=== PATIENT | female | born 1945 | race Caucasian/White ===

== ENCOUNTER → 2023-07-23 12:44 | Outpatient (REF) | payer OTHER, SELFPAY | LOC: HWRAD 12:44 | PROVIDERS: ATTENDING PHYSICIAN Urology; FAMILY PHYSICIAN Family Medicine | DX: N20.0 Calculus of kidney (principal) | CPT/HCPCS: 76775 ==

== ENCOUNTER 2023-09-11 22:10 | Inpatient (IN) | payer OTHER, SELFPAY ==
[2023-09-11 18:18] VITALS: BP 186/85
[2023-09-11] MEDS: ZOFRAN ODT (ORALLY DISINTEGRATING) 4 MG PO (18:28)
[2023-09-11 18:37] LABS: % Basophils 0.5 % (0-2); % Eosinophils 0.7 % (0-6); % Immature Granulocytes 0.5 % (0-0.5); % Lymphocytes 12.3 % (20.5-51.1); Absolute Basophils 0.1 10^3/uL (0-0.2); Absolute Eosinophils 0.1 10^3/uL (0-0.7); Absolute Immature Granulocytes 0.1 10^3/uL (0-0.05); Absolute Lymphocytes 1.6 10^3/uL (1.2-3.4); Absolute Monocytes 1.2 10^3/uL (0.1-0.6); Hematocrit 37.3 % (37.0-47.0); Hemoglobin 12.6 g/dL (12.0-16.0); Mean Corp Hgb Conc. 33.8 g/dL (33.0-37.0); Mean Corpuscular Volume 91.6 fL (81.0-99.0); Mean Platelet Volume 9.8 fL (7.4-10.4); Nucleated Red Blood Cells % 0 %; Platelet Count 254 10^3/uL (130-400); Red Blood Cell Count 4.07 10^6/uL (4.20-5.40)
[2023-09-11 19:00] LABS: ALT (SGPT) 547 U/L (0-35); Albumin 4.4 g/dl (3.5-5.0); Alkaline Phosphatase 130 U/L (38-126); Blood Urea Nitrogen 27 mg/dl (7-17); Calcium 10.3 mg/dl (8.4-10.2); Carbon Dioxide 28 mmol/L (22-30); Chloride 103 mmol/L (98-107); Glucose 278 mg/dl (70-99); Potassium 4.3 mmol/L (3.5-5.1); Sodium 139 mmol/L (135-145); Total Bilirubin 1.5 mg/dl (0.2-1.3); eGFR 38.03
[2023-09-11 19:11] LABS: AST (SGOT) 1341 U/L (14-36)
[2023-09-11 19:48] LABS: Lipase > 4000 U/L (23-300)
[2023-09-11] MEDS: NSS 1000 IV ×2 (19:56→22:56)
[2023-09-11 20:00] VITALS: BP 142/67
--- NOTE | 2023-09-11 20:01 | ED.GENMED ---
History of Present Illness
General
Chief Complaint: Abdominal Pain
Source: patient and spouse
Exam Limitations: none
Time Seen by Provider: 09/11/23 19:16
Nursing documentation reviewed up to this point in time: agreed with
Travel History
Have you had any contact with someone who has COVID-19?: No
Do you have any symptoms of coronavirus? Fever > 100 degrees, chills, cough, shortness of breath, sore throat, loss of taste or smell, muscle aches, or headache?: No
History of Present Illness
History of Present Illness:
78 yo female w IDDM, hx pancreatitis, HLD, uterine cancer with hysterectomy, appendectomy, cholecystectomy presents stating she had a sudden onset at 3:30 PM of vomiting multiple times. says she has been sleeping a lot the past couple of
days. She does feel fatigued. She has not vomited since then but she did have 3 episodes of diarrheal stools today. She received Zofran in triage and states she is no longer nauseous. She does have upper mid to left abdominal pain
Has been taking Mounjaro for about 9 months, she stopped it 4 weeks ago because they were out of stock. She saw her PCP Dr. Gomez 2 weeks ago and her liver enzymes were elevated with a lipase of 250 she states. She went back 1 week ago and had
blood work repeated and they were improving.
Past History
Past History
ED Past Medical History: Cancer (Uterine), Hypercholesterolemia, NIDDM, Other (Pancreatitis) and Other (Kidney stone)
ED Past Surgical History: Appendectomy, Cholecystectomy, and Gynecological
Social History
Tobacco: Non-smoker
Alcohol: Occasional (Maybe twice in a year)
Drug: None
Personal:
Living: with family
Employment: Retired
Family History
Family History: Other (Noncontributory)
Review of Systems
Review of Systems
Allergies reviewed?: Yes
All Other Systems: ROS reviewed and negative except as documented in HPI and ROS
Constitutional: Reports fatigue; Denies fever
Respiratory: Denies trouble breathing
Cardiac: Denies chest pain
ABD/GI: Reports abdominal pain, nausea, vomiting and diarrhea; Denies bloody stools or black stools
: Denies dysuria, frequency, difficulty voiding or urgency
Musculoskeletal: Reports no symptoms
Skin: Reports no symptoms
Neurological: Reports no symptoms
Phy Exam
Physical Exam
Physical Exam:
GENERAL: No acute distress. A&Ox3.
CONSTITUTIONAL: Afebrile.
EYES: Clear, conjunctivae normal
ENMT: moist mucus membranes, Pharynx nl
RESPIRATORY: Regular respirations, nonlabored, lungs clear.
CARDIOVASCULAR: Regular rate and rhythm, no murmurs, no rubs.
GI: Soft, tender mid to left upper quadrant with guarding , normal BS
MUSCULOSKELETAL: Moves with ease. Well perfused.
SKIN: Warm, dry, pink
PSYCH: Normal mood and affect. Well kept, interactive and appropriate
NEUROLOGIC: Awake, alert and oriented. No focal neurological deficits
Course
Orders/Labs/Results
Orders:
Orders
09/11/23 18:26
CBC/With Diff [Complete Blood Count/With Diff] Urgent
CMP [Comprehensive Metabolic Panel] Urgent
Creatine Phosphokinase Urgent
Comment: ADD ON
Lipase Urgent
Ondansetron Orally Disint [Zofran Odt (Orally Disintegrating)] 4 mg .ROUTE .STK-MED ONE
09/11/23 18:27
Ondansetron Orally Disint [Zofran Odt (Orally Disintegrating)] 4 mg PO NOW STA
09/11/23 19:27
0.9% Sodium Chloride 1000 ml [Nss] 1,000 ml IV BOLUS
09/11/23 20:05
US Abdomen Complete/Upper Urgent
Comment:
Reason For Exam: recurrent pancreatitis Lipase >4000, IDDM
09/11/23 20:56
Admit/Transfer Patient As Directed
Co-Sign Provider:
Level of Care: Inpatient admission
Assign to:: Medical/Surgical
Physician / Group: kamille garcia
Diagnosis: acute pancreatitis
Reason for Hospitalization: acute pancreatitis
Expected length of stay greater than two midnights?: Yes
ELOS- Estimated Length of Stay in days: 3
I certify the patient meets the requirements for IP care: Yes
Code Status As Directed
Resuscitation Status: Full Code
09/11/23 21:30
Add On- LAB Urgent
Tests Added?: CPK
Abnormal Lab Results
09/11/23
18:26
WBC 13.0 H 10^3/uL
(4.8-10.8)
RBC 4.07 L 10^6/uL
(4.20-5.40)
Abs Immat Gran (auto) 0.1 H 10^3/uL
(0-0.05)
Absolute Neuts (auto) 10.0 H 10^3/uL
(1.4-6.5)
Absolute Monos (auto) 1.2 H 10^3/uL
(0.1-0.6)
Neutrophils % 77.0 H %
(42.2-75.2)
Lymphocytes % 12.3 L %
(20.5-51.1)
BUN 27 H mg/dl
(7-17)
Creatinine 1.4 H mg/dL
(0.6-1.0)
Glucose 278 H mg/dl
(70-99)
Calcium 10.3 H mg/dl
(8.4-10.2)
Total Bilirubin 1.5 H mg/dl
(0.2-1.3)
AST 1341 H* U/L
(14-36)
ALT 547 H* U/L
(0-35)
Alkaline Phosphatase 130 H U/L
(38-126)
Lipase > 4000 H* U/L
(23-300)
09/11/23 18:26
09/11/23 18:26
Vital Signs
Initial and Last Documented VS:
Initial Vital Signs
Temp Pulse Resp BP Pulse Ox
97.6 F 78 19 186/85 97
09/11/23 18:18 09/11/23 18:18 09/11/23 18:18 09/11/23 18:18 09/11/23 18:18
Last Documented Vital Signs
Temp Pulse Resp BP Pulse Ox
97.6 F 78 19 142/67 94
09/11/23 18:18 09/11/23 18:18 09/11/23 18:18 09/11/23 20:00 09/11/23 20:15
MDM/Problems Addressed
Differential Diagnosis Includes:
Pancreatitis, diverticulitis, colitis
MDM/Problems Addressed:
78 yo female w IDDM, hx pancreatitis, HLD, uterine cancer with hysterectomy, appendectomy, cholecystectomy presents stating she had a sudden onset at 3:30 PM of vomiting multiple times. says she has been sleeping a lot the past couple of
days. She does feel fatigued. She has not vomited since then but she did have 3 episodes of diarrheal stools today. She received Zofran in triage and states she is no longer nauseous. She does have upper mid to left abdominal pain
Has been taking Mounjaro for about 9 months, she stopped it 4 weeks ago because they were out of stock. She saw her PCP Dr. Gomez 2 weeks ago and her liver enzymes were elevated with a lipase of 250 she states. She went back 1 week ago and had
blood work repeated and they were improving.
7:30 PM
CBC: WBC 13.0 with elevated neutrophils
CMP: BUN/creatinine 27/1.4
Significantly elevated liver enzymes
Lipase greater than 4000
8:10 PM
Patient remained stable, comfortable, states she does not need pain medication
Ultrasound pending
Hospitalist notified of admission
*Critical Care Note
Total Time (30-74mins, 75-104mins- exclusive of procedures): Not Applicable
ED Attending Note
-
Portions of this chart may have been created with voice recognition software.� Occasional wrong word or��sound alike� substitutions may have occurred due to the inherent limitations of voice recognition software.
Discharge Plan
Departure
Patient Disposition: Admit
Date of Disposition: 09/11/23
Time of Disposition: 20:10
Admit to: Med/Surg
Presentation/result/management discussed w/ accepting MD/DO: Hospitalist
Condition: Serious
Discharge Problem:
Acute pancreatitis
Prescriptions:
No Action
insulin glargine U-300 conc [Toujeo SoloStar U-300 Insulin] 300 UNIT/ML insulin pen
45 units SC HS
Patient Comments:
INJECT 16 UNITS SUBCUTANEOUSLY ONCE DAILY
atorvastatin 80 mg tablet
80 mg PO DAILY
estradiol 0.01 % (0.1 mg/gram) cream
1 appful VAGINAL .3X WEEKLY
potassium citrate 5 mEq (540 mg) tablet extended release
15 meq PO BIDWMEAL
insulin aspart U-100 [Novolog FlexPen U-100 Insulin] 100 unit/mL (3 mL) insulin pen
20 unit SC AC
fenofibrate nanocrystallized 145 mg tablet
145 mg PO DAILY
olopatadine 0.6 % spray,non-aerosol
2 spray INTRANASAL BID
omega 1-hdt-rga-fish oil [Fish Oil] 1,000 mg (120 mg-180 mg) Capsule
1 cap PO MEALS
Referrals:
Tolu Gomez MD [Family Provider] -
Discharge Date and Time
Print Language: MACEDONIAN
--- NOTE | 2023-09-11 20:29 | HPS.HSE ---
Addendum entered and electronically signed by Clayton Polo DO 09/11/23 22:21:
Patient seen and examined independently. Agree with findings and plan as set forth by KIMBERLY Haley.
Patient is an 78y F with PMH significant for pancreatitis, DM-II and kidney stones who presents to ED complaining of N/V/D and abdominal discomfort. Patient states that she was feeling well until about 3 PM today when she developed sudden onset
of crampy abdominal pain, nausea with multiple episodes of non-bloody / bilious emesis and diarrhea. Patient states that she had eaten a roast beef sandwich and some animal crackers just prior to development of these symptoms.
She denies any new medications. Her most recent me change was cessation of Mounjaro about one month ago (which she stopped due to rising amylase / lipase). She states that her labs did improve after stopping this medication.
No other new meds.
Patient has prior history of complicated pancreatitis s/p ERCP done at [facility].
Ass:
N/V/D
Acute Pancreatitis
Abnormal LFTs
CKD III
DM-II
Nephrolithiasis
Plan:
Admit for further evaluation and treatment.
Patient feels markedly improved in the ED after only Zofran.
? gastroenteritis based on description / acuity of symptoms; however, markedly abnormal LFTs and pancreatic enzymes.
NPO, IVFs, antiemetics and pain control as needed.
GI evaluation for additional recommendations.
Original Note:
Family Physician
-
Family Physician: Tolu Gomez
Chief Complaint
-
Abdominal pain, nausea, vomit, diarrhea
History of Present Illness
78-year-old female who states she had roast beef lunch meat with cheese lettuce and tomato on a sandwich followed by half a bag of animal crackers then shortly after at 3 PM developed acute nausea followed by vomiting x 1 hour then liquid diarrhea.
She complains of mid upper epigastric pain with distention. She denies fever, chills, headache, chest pain, palpitations, shortness of breath, cough, urinary symptoms. She has past medical history of pancreatitis in 2000 thought to related to
hyperglycemia with blood sugars over 500 at that time. She prior cholecystectomy 24 years ago.
She past medical history transaminitis 09/26/2021, pancreatitis, HLD, DM2, bifascicular heart block, sepsis with Klebsiella pneumonia bacteremia 09/26/2021, non-[place] troponin elevation 09/26/2021, nephrolithiasis
Medical History
Past Medical History
Past Medical History: Reports Other
Additional Past Medical History:
transaminitis 09/26/2021
pancreatitis 2000 thought to be related to hyperglycemia with blood sugars over 500-treated at [facility] had ERCP with no stones
HLD
DM2
bifascicular heart block
sepsis with Klebsiella pneumonia bacteremia 09/26/2021
non-[place] troponin elevation 09/26/2021
nephrolithiasis uric acid stones
Past Surgical History: Reports Other
Additional Past Surgical History:
Appendectomy
Cholecystectomy removal 24 years ago
Social History
Tobacco: Non-smoker
Alcohol: None
Drug: None
Personal:
Living: With Family
Employment: Retired
Family History
Family History: Other (Father of abdominal aortic rupture, mother breast cancer to lung cancer 61 years old)
Allergies / Home Medications
Allergies reflects when Allergies were last updated in [employer].
Home Medications with original date entered in [employer]
Allergy/Medication List:
Allergies
Allergy/AdvReac Type Severity Reaction Status Date / Time
oxycodone [From OxyContin] Allergy Nausea / Verified 09/11/21 12:59
Vomiting
Penicillins Allergy Rash Verified 09/11/21 12:59
Home Medications
insulin glargine U-300 conc 300 unit/mL (1.5 mL) subcutaneous pen (Toujeo SoloStar U-300 Insulin) 45 units SC HS Diabetes 03/27/17
atorvastatin 80 mg tablet 80 mg PO DAILY 09/11/23
estradiol 0.01% (0.1 mg/gram) vaginal cream 1 appful vaginal .3X WEEKLY 09/11/23
fenofibrate nanocrystallized 145 mg tablet 145 mg PO DAILY 09/11/23
insulin aspart U-100 100 unit/mL (3 mL) subcutaneous pen (Novolog FlexPen U-100 Insulin aspart) 20 unit SC AC 09/11/23
olopatadine 0.6 % nasal spray 2 spray intranasal BID 09/11/23
omega 3-ick-nmo-fish oil 1,000 mg (120 mg-180 mg) capsule (Fish Oil) 1 cap PO MEALS 09/11/23
potassium citrate 5 mEq (540 mg) tablet,extended release 15 meq PO BIDWMEAL 09/11/23
Review of Systems
-
History Source: Patient
A 12 point ROS was completed and negative except as noted: Yes
Constitutional: Denies Fever or Chills
EENT: Denies Sore Throat or Runny Nose
Respiratory: Denies Cough or Trouble Breathing
Cardiac: Denies Chest Pain, Diaphoresis or Palpitations
Abdomen/GI: Reports Abdominal Pain (Mid upper abdomen), Nausea, Vomiting and Diarrhea; Denies Constipated, Bloody Stools or Black Stools
: Denies Dysuria, Frequency, Flank Pain, Incontinence or Difficulty Voiding
Musculoskeletal: Denies Joint Pain or Edema
Skin: Denies Itching or Rash
Neurological: Denies Dizzy, Headache or Weakness
Endocrine: Reports No Symptoms
Hematologic/Lymphatic: Reports No Symptoms
Psych: Reports Calm
Physical Exam
Vital Signs
Vital Signs
Temp Pulse Resp BP Pulse Ox
97.6 F 78 19 142/67 94
09/11/23 18:18 09/11/23 18:18 09/11/23 18:18 09/11/23 20:00 09/11/23 20:15
Physical Exam
General: Comfortable and Conversant; No Fever or Chills
HEENT: NormoCephalic, Anicteric, Moist mucous membranes, PERRLA, [place] Conjunctivae and No Ptosis
Respiratory: Clear; No Wheezes, Rales or Rhonchi
Cardiac: S1/S2 and Regular Rhythm; No Murmur, Rub, Gallop or Peripheral Edema
Breast: Deferred by me
GI: Soft, Normal Bowel Sounds, Tender (Midepigastric/upper abdomen), Distended and No Hepatosplenomegaly
Genito-urinary: Deferred by me
Musculoskeletal: No Clubbing, No Cyanosis and No Edema
Skin: Warm and Dry; No Rash
Neuro: AO x 3, No Motor Deficits, Nonfocal/grossly intact, Cranial Nerves Intact and No Sensory Deficits; No Slurred Speech, Facial Droop or Tremors
Psych: Calm
Laboratory Results
-
09/11/23 18:26
09/11/23 18:26
Laboratory Results
Total Bilirubin 1.5 mg/dl (0.2-1.3) H 09/11/23 18:26
AST 1341 U/L (14-36) H* 09/11/23 18:26
ALT 547 U/L (0-35) H* 09/11/23 18:26
Alkaline Phosphatase 130 U/L (38-126) H 09/11/23 18:26
Lipase > 4000 U/L (23-300) H* 09/11/23 18:26
Impression/Plan
-
Impression/plan:
Admit to [facility]
#Acute pancreatitis/transaminitis/hyperbilirubinemia unclear etiology
#Past medical history transaminitis 09/26/2021
#Hx pancreatitis 2000 thought to be related to hyperglycemia with blood sugar over 500
#Hx cholecystectomy 24 years ago
WBC 13, T. bili 1.5
AST 1341, ALT 574, lipase>4000
-N.p.o.
-IV PPI
-IV NSS 1 L, Nss 200 cc/hr
-Consult GI
- hepatitis panel
-Ultrasound abdomen :Prior cholecystectomy. Stable
Hepatic fatty infiltration. Stable
Simple right renal cyst. Stable
Nonobstructing left renal stones. New
Nonvisualization of the pancreatic tail.
#HLD
-Hold atorvastatin 80 mg daily, fenofibrate 145 mg daily, fish oil
#CKD 3B
Creat 1.4 was 1.2 in 2021
-Will BMP
#DM2
BS 278
-Accu-Cheks with SSI, check HgbA1c
-Hold Toujeo 45 units SQ at bedtime, NovoLog 20 units with meals
#Bifascicular heart block hx
#Obesity due to excess calorie consumption
-Weight loss recommended, low-fat diet
Other PMH:
Sepsis with Klebsiella pneumonia bacteremia 09/26/2021
non-[place] troponin elevation 09/26/2021
Renal calculi uric acid type-Hold potassium citrate twice daily with meals
DVT prophylaxis
Subcu Lovenox
Full code
[2023-09-11 22:05] LABS: Creatine Phosphokinase 198 U/L (30-135)
[2023-09-11 22:40] VITALS: BMI 32.9
[2023-09-11 23:08] VITALS: BP 155/86
[2023-09-12] MEDS: NSS 1000 IV ×4 (05:03→21:43)
[2023-09-12 05:39] LABS: % Basophils 0.4 % (0-2); % Eosinophils 0.6 % (0-6); % Immature Granulocytes 0.5 % (0-0.5); % Lymphocytes 13.9 % (20.5-51.1); % Monocytes 10.2 % (1.7-9.3); % Neutrophils 74.4 % (42.2-75.2); Absolute Eosinophils 0.1 10^3/uL (0-0.7); Absolute Immature Granulocytes 0.1 10^3/uL (0-0.05); Absolute Lymphocytes 1.4 10^3/uL (1.2-3.4); Absolute Neutrophils 7.3 10^3/uL (1.4-6.5); Mean Corp Hgb Conc. 34.4 g/dL (33.0-37.0); Mean Corpuscular Hgb 30.7 pg (27.0-31.0); Mean Corpuscular Volume 89.4 fL (81.0-99.0); Mean Platelet Volume 9.9 fL (7.4-10.4); Nucleated Red Blood Cells % 0 %; Platelet Count 235 10^3/uL (130-400); Red Blood Cell Count 3.58 10^6/uL (4.20-5.40); Red Cell Dist. Width 14.3 % (11.5-14.5); White Blood Cell Count 9.9 10^3/uL (4.8-10.8)
[2023-09-12 06:15] LABS: ALT (SGPT) 519 U/L (0-35); Albumin 3.5 g/dl (3.5-5.0); Alkaline Phosphatase 115 U/L (38-126); Blood Urea Nitrogen 20 mg/dl (7-17); Carbon Dioxide 22 mmol/L (22-30); Chloride 110 mmol/L (98-107); Estimated Creatinine Clearance 34 ml/min; Glucose 223 mg/dl (70-99); Potassium 4.2 mmol/L (3.5-5.1); Sodium 140 mmol/L (135-145); Total Bilirubin 1.1 mg/dl (0.2-1.3); Total Protein 6.5 g/dl (6.3-8.2); eGFR 41.57
[2023-09-12 06:25] LABS: AST (SGOT) 862 U/L (14-36)
[2023-09-12] MEDS: PROTONIX IV 40 MG IV (08:34)
[2023-09-12] MEDS: NSS (PRESERVATIVE FREE) 10 ML IV (08:34)
[2023-09-12 08:39] VITALS: BMI 33.7
[2023-09-12 08:40] VITALS: BP 140/62
--- NOTE | 2023-09-12 09:49 | CON.GI ---
Addendum entered and electronically signed by Joellen Sutherland MD 09/12/23 15:21:
I saw and examined the patient.
The MOBILE APPLICATION TESTER or PA's note was reviewed and I agree with the note.
Comment:
This patient is an 78-year-old woman with a history of diabetes on insulin who recently was placed on Mounjaro. She did stop Mounjaro about a month ago and subsequently had an increase in her amylase and lipase and some abdominal discomfort. She
also had some nausea, vomiting and diarrhea. She does have a history of pancreatitis due to hypertriglyceridemia.In the ER she was found to have transaminase elevation as well as a lipase greater than 4000. Her abdominal pain is subsequently
resolved.
abd: soft, nontender
impression
abnl lfts
IVFs
trend lfts, lipase
MRI/MRCP
NPO for now
Original Note:
Consultation
-
Date/Time Consultation Requested: 09/11/232231
Date/Time Consultation Performed: 09/12/23 0900
Requesting Provider: KIMBERLY Rogers
Performing Provider: Dr. Sutherland/KIMBERLY Tee
Reason for Consultation: pancreatitis
Medical History
Chief Complaint / HPI
Chief Complaint: abd pain
History of Present Illness:
78-year-old female with past medical history of diabetes, on insulin and recently on Mounjaro started 9 months ago for hemoglobin A1c that was uncontrolled, now improved however unable to get meds for the past 4 weeks, CKD, osteoarthritis, uterine
cancer, hyperlipidemia with elevated triglycerides, history of pancreatitis in 2000 felt to be due secondary to hypertriglyceridemia with prolonged hospitalization requiring TPN. Who presents to the emergency room with acute onset of abdominal pain
yesterday. Asked to evaluate for pancreatitis. The patient states that she gets her amylase and lipase checked frequently for her history of pancreatitis in the past with her PCP. She states that a couple weeks ago her amylase and lipase started
increasing. She has been on Mounjaro for approximately 9 months. Approximately 4 weeks ago because of supply chain issues she has been not able to take this. She has had no other changes in medications recently. I was able to review her outside
labs and she did have a mild increase in amylase and lipase. With normal liver function test. On 08/22/2023 she had amylase of 147 with a lipase of 235 and triglycerides of 378 with normal LFTs. Repeated on 08/28/2023 with an amylase of 102 and a
lipase of 144. Of note the lipase was only 1 that was slightly out of range. Normal LFTs at that time. The patient states that she did not had have any discomfort till yesterday where she had acute onset of abdominal discomfort which she states
is periumbilical in nature. The pain was sharp, constant, associated with nausea and vomiting of bilious fluid. She had newspaper correspondent colored stools. She did not notice the color of her urine. She denies any fevers, chills, hematochezia, dysphagia or
odynophasia. No early satiety or unintentional weight loss. She presents to the emergency room with a leukocytosis of 13.0 which is now improved to 9.9, hemoglobin of 12.6 which is now down to 11.0 with IV fluids at 200 cc an hour. Sodium 140,
potassium 4.2, chloride 110, CO2 22, BUN 20, creatinine 1.3, glucose 223, calcium 9.0 down from 10.3, total bilirubin 1.1 down from 1.5 no fractionation performed. AST 862 down from 1341, ALT 519 down from 547, alk phos 115 down from 130, CK 198,
lipase greater than 4000. Hepatitis panel pending. Ultrasound the abdomen performed that showed prior cholecystectomy. CBD 10 mm. Pancreatic tail poorly visualized. Simple right renal cyst. Nonobstructing left renal stones.
Past Medical History
Past Medical History: Cancer (Uterine cancer), Hypercholesterolemia (Elevated triglycerides, hyperlipidemia), NIDDM and Other (CKD, pancreatitis, kidney stone)
Past Surgical History: , Gynecological and Other (Left trigger finger, , appendectomy, cholecystectomy, hysterectomy, EUS/ERCP)
Social History
Tobacco: Non-Smoker
Alcohol: None
Drug: None
Personal:
Living: With Family
Family History
Family History: Other (No family history of gastrointestinal malignancy or IBD)
Allergies / Home Medications
Allergy/AdvReac Type Severity Reaction Status Date / Time
oxycodone [From OxyContin] Allergy Nausea / Verified 09/11/21 12:59
Vomiting
Penicillins Allergy Rash Verified 09/11/21 12:59
�Medication �Instructions �Recorded
insulin glargine U-300 conc 300 45 units SC HS Diabetes 03/27/17
unit/mL (1.5 mL) subcutaneous pen
(Toujeo SoloStar U-300 Insulin)
atorvastatin 80 mg tablet 80 mg PO DAILY 09/11/23
estradiol 0.01% (0.1 mg/gram) 1 appful vaginal .3X WEEKLY 09/11/23
vaginal cream
fenofibrate nanocrystallized 145 145 mg PO DAILY 09/11/23
mg tablet
insulin aspart U-100 100 unit/mL 20 unit SC AC 09/11/23
(3 mL) subcutaneous pen (Novolog
FlexPen U-100 Insulin aspart)
olopatadine 0.6 % nasal spray 2 spray intranasal BID 09/11/23
omega [id number]-fish oil 1,000 mg 1 cap PO MEALS 09/11/23
(120 mg-180 mg) capsule (Fish Oil)
potassium citrate 5 mEq (540 mg) 15 meq PO BIDWMEAL 09/11/23
tablet,extended release
Review of Systems
-
All other systems: A 12 pt ROS was Negative except as stated above in HPI
Vital Signs
Temp Pulse Resp BP Pulse Ox
98.1 F 61 18 140/62 98
09/12/23 08:40 09/12/23 08:40 09/12/23 08:40 09/12/23 08:40 09/12/23 08:40
Physical Exam
Exam
General: No Apparent Distress
HEENT: Normocephalic and Anicteric
Respiratory: Clear
Cardiac: Regular Rhythm
GI: Soft, Non Distended, Normal Bowel Sounds and Tender (Mild periumbilical tenderness)
Skin: Warm
Neuro: AO x 3
Psych: Calm
Results
WBC 9.9 10^3/uL (4.8-10.8) 09/12/23 04:59
Hgb 11.0 g/dL (12.0-16.0) L 09/12/23 04:59
Hct 32.0 % (37.0-47.0) L 09/12/23 04:59
MCV 89.4 fL (81.0-99.0) 09/12/23 04:59
Plt Count 235 10^3/uL (130-400) 09/12/23 04:59
Absolute Neuts (auto) 7.3 10^3/uL (1.4-6.5) H 09/12/23 04:59
Sodium 140 mmol/L (135-145) 09/12/23 04:59
Potassium 4.2 mmol/L (3.5-5.1) 09/12/23 04:59
Chloride 110 mmol/L (98-107) H 09/12/23 04:59
Carbon Dioxide 22 mmol/L (22-30) 09/12/23 04:59
BUN 20 mg/dl (7-17) H 09/12/23 04:59
Creatinine 1.3 mg/dL (0.6-1.0) H 09/12/23 04:59
Calcium 9.0 mg/dl (8.4-10.2) 09/12/23 04:59
Total Bilirubin 1.1 mg/dl (0.2-1.3) 09/12/23 04:59
AST 862 U/L (14-36) H* 09/12/23 04:59
ALT 519 U/L (0-35) H* 09/12/23 04:59
Alkaline Phosphatase 115 U/L (38-126) 09/12/23 04:59
Lipase > 4000 U/L (23-300) H* 09/11/23 18:26
Diagnostic Image Results:
US Abd 09/11/23:
IMPRESSION: Prior cholecystectomy. Stable
Hepatic fatty infiltration. Stable
Simple right renal cyst. Stable
Nonobstructing left renal stones. New
Nonvisualization of the pancreatic tail.
Electronically signed by Renee Hart DO , 09/11/2023 9:25 PM
Prior GI Procedures:
EGD: Never
Colonoscopy: 10/11/2017 ([facility]) - The entire examined colon is normal.
- The examined portion of the ileum was normal
ERCP Dec 2000 ([facility]) -> records unavailable
Assessment / Plan
-
78-year-old female with past medical history of diabetes, on insulin and recently on Mounjaro started 9 months ago for hemoglobin A1c that was uncontrolled, now improved however unable to get meds for the past 4 weeks, CKD, osteoarthritis, uterine
cancer, hyperlipidemia with elevated triglycerides, history of pancreatitis in 2000 felt to be due secondary to hypertriglyceridemia with prolonged hospitalization requiring TPN. Who presents to the emergency room with acute onset of abdominal pain
yesterday. Asked to evaluate for pancreatitis. The patient states that she gets her amylase and lipase checked frequently for her history of pancreatitis in the past with her PCP. She states that a couple weeks ago her amylase and lipase started
increasing. She has been on Mounjaro for approximately 9 months. Approximately 4 weeks ago because of supply chain issues she has been not able to take this. She has had no other changes in medications recently. I was able to review her outside
labs and she did have a mild increase in amylase and lipase. With normal liver function test. On 08/22/2023 she had amylase of 147 with a lipase of 235 and triglycerides of 378 with normal LFTs. Repeated on 08/28/2023 with an amylase of 102 and a
lipase of 144. Of note the lipase was only 1 that was slightly out of range. Normal LFTs at that time. The patient states that she did not had have any discomfort till yesterday where she had acute onset of abdominal discomfort which she states
is periumbilical in nature.She presented with a leukocytosis of 13.0 which is now improved to 9.9, hemoglobin of 12.6 which is now down to 11.0 with IV fluids at 200 cc an hour. Sodium 140, potassium 4.2, chloride 110, CO2 22, BUN 20, creatinine
1.3, glucose 223, calcium 9.0 down from 10.3, total bilirubin 1.1 down from 1.5 no fractionation performed. AST 862 down from 1341, ALT 519 down from 547, alk phos 115 down from 130, CK 198, lipase greater than 4000. Hepatitis panel pending.
Ultrasound the abdomen performed that showed prior cholecystectomy. CBD 10 mm. Pancreatic tail poorly visualized. Simple right renal cyst. Nonobstructing left renal stones.
Impression:
Pancreatitis
Elevated LFTs
DM
History hypertriglyceridemia
Hx Mounjaro use (off x 4 weeks)
Plan:
-Continue IVF, may be able to decrease later today
-Incentive spirometer
-Check direct bilirubin, triglycerides now
-CBC, BMP, LFTs, CRP and lipase in a.m.
-MRI/MRCP to evaluate pancreas and bile ducts
-Further recommendations to be forthcoming
Data Reviewed
-
Ultrasound: Report Reviewed by me
Old Records: Reviewed
-
-
Thank you for consultation and allowing me to participate in the patient's care. Please call the [facility] GI physician during the after hours with any questions or concerns.
[2023-09-12 10:19] VITALS: BP 144/60; PULSE 62; O2SAT 96
[2023-09-12 10:25] VITALS: BP 144/61; BP 81/70; O2SAT 95
[2023-09-12 10:31] LABS: Triglycerides 199 mg/dl (10-149)
[2023-09-12 10:46] LABS: Direct Bilirubin 0.8 mg/dl (0.0-0.4)
--- NOTE | 2023-09-12 14:26 | W.PN.HOSP.TC ---
Today's Communication/Plan
-
see plan below
Assessment / Plan
Assessment / Plan
Assessment:
N/V/D
Acute Pancreatitis
- MRI/MRCP: Status post cholecystectomy with no evidence for biliary ductal dilation. There is no evidence for bile duct calculus. Mild edema with in and adjacent to the neck and head of the pancreas, compatible with pancreatitis. There is no
evidence for macroscopic necrosis. There is no evidence of a focal collection to suggest abscess or developing pseudocyst.
- TG level 199
- continue IVF
- trend Lipase
- GI following
Abnormal LFTs
- trend LFTs
- check hepatitis panel
- holding statin
History hypertriglyceridemia
- hold statin/fibrates
- TG level 199
CKD IIIb
IDDM
- hold Toujeo and NovoLog while NPO
- continue SSI
- A1c: pending
- off Mounjaro x 4 weeks
hx of Nephrolithiasis
DVT ppx: Lovenox
Code: Full
Anticipated Discharge: > 48 hours
Subjective/Interval History
-
Date of Service: September 12, 2023
pain improving
Objective Data
-
Labs:
Laboratory Results
09/12/23
04:59
WBC 9.9
Hgb 11.0 L
Hct 32.0 L
Plt Count 235
Sodium 140
Potassium 4.2
Chloride 110 H
Carbon Dioxide 22
BUN 20 H
Creatinine 1.3 H
Glucose 223 H
Calcium 9.0
Total Bilirubin 1.1
AST 862 H*
ALT 519 H*
Alkaline Phosphatase 115
Vital Signs:
Vital Signs
Temp Pulse Resp BP Pulse Ox
98.1 F 61 18 140/62 98
09/12/23 08:40 09/12/23 08:40 09/12/23 08:40 09/12/23 08:40 09/12/23 08:40
I&O
09/11/23 09/12/23 09/13/23
06:59 06:59 06:59
Intake Total 1999
Balance 1999
Physical Exam
-
General: No Apparent Distress
HEENT: Normocephalic and Atraumatic
Respiratory: Negative Wheezes or Rales
Cardiac: Regular Rhythm and S1/S2
GI: Soft
Neuro: AO x 3
Psych: Calm
Data Reviewed
-
Total Time Spent with Patient (in minutes): 45
Labs: Labs Reviewed by me
[2023-09-12 16:01] VITALS: BP 130/58
[2023-09-12 18:14] LABS: Glucose - Point of Care 177 mg/dl (70-99)
[2023-09-12] MEDS: LOVENOX 40 MG SC (18:17)
[2023-09-12] MEDS: NOVOLOG FLEXPEN-LOW RESISTANCE 1 UNITS SC (18:19)
[2023-09-12 19:45] VITALS: BP 152/55; BMI 32.9
[2023-09-12] MEDS: NSS IV (19:54)
--- NOTE | 2023-09-12 21:04 | PTCARENOTE ---
Patient received from ED. Patient denies any pain. IVF infusing at 200ml/hr. Patient remains NPO at this time. Denies any N/V. POC reviewed with patient and all questions answered. Care ongoing.
[2023-09-12 23:10] VITALS: BP 124/61
[2023-09-13 00:18] LABS: Glucose - Point of Care 118 mg/dl (70-99)
[2023-09-13] MEDS: NSS 1000 IV ×5 (02:50→23:34)
[2023-09-13 05:57] LABS: Glucose - Point of Care 112 mg/dl (70-99)
[2023-09-13 07:00] VITALS: BP 142/67
[2023-09-13 08:33] LABS: Hematocrit 31.4 % (37.0-47.0); Hemoglobin 10.3 g/dL (12.0-16.0); Mean Corp Hgb Conc. 32.8 g/dL (33.0-37.0); Mean Corpuscular Volume 94.6 fL (81.0-99.0); Mean Platelet Volume 10.4 fL (7.4-10.4); Platelet Count 191 10^3/uL (130-400); Red Blood Cell Count 3.32 10^6/uL (4.20-5.40); Red Cell Dist. Width 14.6 % (11.5-14.5); White Blood Cell Count 7.4 10^3/uL (4.8-10.8)
[2023-09-13 09:03] LABS: ALT (SGPT) 308 U/L (0-35); AST (SGOT) 280 U/L (14-36); Albumin 3.2 g/dl (3.5-5.0); Alkaline Phosphatase 119 U/L (38-126); Blood Urea Nitrogen 14 mg/dl (7-17); Calcium 8.3 mg/dl (8.4-10.2); Carbon Dioxide 20 mmol/L (22-30); Chloride 113 mmol/L (98-107); Direct Bilirubin 0.5 mg/dl (0.0-0.4); Estimated Creatinine Clearance 40 ml/min; Glucose 112 mg/dl (70-99); Potassium 4.4 mmol/L (3.5-5.1); Sodium 141 mmol/L (135-145); Total Bilirubin 0.8 mg/dl (0.2-1.3); Total Protein 6.1 g/dl (6.3-8.2)
[2023-09-13] MEDS: NSS (PRESERVATIVE FREE) 10 ML IV (09:24)
[2023-09-13] MEDS: PROTONIX IV 40 MG IV (09:25)
[2023-09-13 09:39] LABS: Lipase > 4000.0 U/L (23-300)
--- NOTE | 2023-09-13 10:12 | W.PN.HOSP.TC ---
Today's Communication/Plan
-
cautiously trial clears
continue IVF
Assessment / Plan
Assessment / Plan
Assessment:
N/V/D
Acute Pancreatitis
- MRI/MRCP: Status post cholecystectomy with no evidence for biliary ductal dilation. There is no evidence for bile duct calculus. Mild edema with in and adjacent to the neck and head of the pancreas, compatible with pancreatitis. There is no
evidence for macroscopic necrosis. There is no evidence of a focal collection to suggest abscess or developing pseudocyst.
- TG level 199
- continue IVF; decrease rate to 150/hr
- trend Lipase; remains elevated but no pain or n/v
- cautiously trial clears
- GI following
Abnormal LFTs
- trend LFTs which are improving
- hepatitis panel pending
- holding statin
History hypertriglyceridemia
- hold statin/fibrates
- TG level 199
CKD III b
IDDM
- hold Toujeo and NovoLog while NPO
- continue SSI
- A1c: pending
- off Mounjaro x 4 weeks
hx of Nephrolithiasis
DVT ppx: Lovenox
Code: Full
Anticipated Discharge: > 48 hours
Subjective/Interval History
-
Date of Service: September 13, 2023
denies any new complaints at present
no vomiting or pain
LFTS improving, Lipase remains elevated
Objective Data
-
Labs:
Laboratory Results
09/13/23
06:54
WBC 7.4
Hgb 10.3 L
Hct 31.4 L
Plt Count 191
Sodium 141
Potassium 4.4
Chloride 113 H
Carbon Dioxide 20 L
BUN 14
Creatinine 1.1 H
Glucose 112 H
Calcium 8.3 L
Total Bilirubin 0.8
AST 280 H
ALT 308 H
Alkaline Phosphatase 119
Vital Signs:
Vital Signs
Temp Pulse Resp BP Pulse Ox
98.0 F 58 17 142/67 96
09/13/23 07:00 09/13/23 07:00 09/13/23 07:00 09/13/23 07:00 09/13/23 07:00
I&O
09/12/23 09/13/23 09/14/23
06:59 06:59 06:59
Intake Total 1999 2400 / 2400
Balance 1999 2400 / 2400
Physical Exam
-
General: No Apparent Distress
HEENT: Normocephalic and Atraumatic
Respiratory: Negative Wheezes
Cardiac: Regular Rhythm and S1/S2
GI: Soft and Nontender
Musculoskeletal: No Edema
Neuro: AO x 3
Psych: Calm
Data Reviewed
-
Total Time Spent with Patient (in minutes): 42
Labs: Labs Reviewed by me
[2023-09-13 12:19] LABS: Glucose - Point of Care 116 mg/dl (70-99)
[2023-09-13 13:14] LABS: Glycohemoglobin (HgbA1c) 8.5 % (4.0-5.6)
--- NOTE | 2023-09-13 13:27 | W.PN.GI.CBS2 ---
Today's Communication / Plan
-
trial of clears
Assessment / Plan
-
78-year-old female with past medical history of diabetes, on insulin and recently on Mounjaro started 9 months ago for hemoglobin A1c that was uncontrolled, now improved however unable to get meds for the past 4 weeks, CKD, osteoarthritis, uterine
cancer, hyperlipidemia with elevated triglycerides, history of pancreatitis in 2000 felt to be due secondary to hypertriglyceridemia with prolonged hospitalization requiring TPN. Who presents to the emergency room with acute onset of abdominal pain
yesterday. Asked to evaluate for pancreatitis. The patient states that she gets her amylase and lipase checked frequently for her history of pancreatitis in the past with her PCP. She states that a couple weeks ago her amylase and lipase started
increasing. She has been on Mounjaro for approximately 9 months. Approximately 4 weeks ago because of supply chain issues she has been not able to take this. She has had no other changes in medications recently. I was able to review her outside
labs and she did have a mild increase in amylase and lipase. With normal liver function test. On 08/22/2023 she had amylase of 147 with a lipase of 235 and triglycerides of 378 with normal LFTs. Repeated on 08/28/2023 with an amylase of 102 and a
lipase of 144. Of note the lipase was only 1 that was slightly out of range. Normal LFTs at that time. The patient states that she did not had have any discomfort till yesterday where she had acute onset of abdominal discomfort which she states
is periumbilical in nature.She presented with a leukocytosis of 13.0 which is now improved to 9.9, hemoglobin of 12.6 which is now down to 11.0 with IV fluids at 200 cc an hour. Sodium 140, potassium 4.2, chloride 110, CO2 22, BUN 20, creatinine
1.3, glucose 223, calcium 9.0 down from 10.3, total bilirubin 1.1 down from 1.5 no fractionation performed. AST 862 down from 1341, ALT 519 down from 547, alk phos 115 down from 130, CK 198, lipase greater than 4000. Hepatitis panel pending.
Ultrasound the abdomen performed that showed prior cholecystectomy. CBD 10 mm. Pancreatic tail poorly visualized. Simple right renal cyst. Nonobstructing left renal stones.
Impression:
Pancreatitis
Elevated LFTs
DM
History hypertriglyceridemia
Hx Mounjaro use (off x 4 weeks)
Plan:
-Continue IVF but start clear liquids
-MRCP negative for stones
- Mounjaro as cause?
- follow lipase which is still elevated
- follow lfts which are improving
Subjective
Subjective
Date of Service: September 13, 2023
Pt with much improved pain, hungry
Objective
Data Reviewed
Laboratory Data:
Laboratory Results
09/13/23 06:54
09/13/23 06:54
Laboratory Results
Total Bilirubin 0.8 mg/dl (0.2-1.3) 09/13/23 06:54
AST 280 U/L (14-36) H 09/13/23 06:54
ALT 308 U/L (0-35) H 09/13/23 06:54
Alkaline Phosphatase 119 U/L (38-126) 09/13/23 06:54
Lipase > 4000.0 U/L (23-300) H* 09/13/23 06:54
Vital Signs and I&O:
Vital Signs
Temp Pulse Resp BP Pulse Ox
98.0 F 58 17 142/67 96
09/13/23 07:00 09/13/23 07:00 09/13/23 07:00 09/13/23 07:00 09/13/23 07:00
I&O
09/12/23 09/13/23 09/14/23
06:59 06:59 06:59
Intake Total 1999 2400 / 2400
Balance 1999 2400 / 2400
Physical Exam
Physical Exam
HEENT: Anicteric
GI: Soft, Non Distended and Tender (mild tenderness)
Extremities: Warm
Neuro: Non Focal
[2023-09-13 14:46] VITALS: BP 154/65
[2023-09-13 16:55] LABS: Glucose - Point of Care 90 mg/dl (70-99)
[2023-09-13] MEDS: LOVENOX 40 MG SC (16:58)
[2023-09-13 21:34] LABS: Glucose - Point of Care 117 mg/dl (70-99)
[2023-09-13 23:00] VITALS: BP 160/71
[2023-09-14] MEDS: NSS 1000 IV (06:25)
[2023-09-14 06:59] LABS: % Basophils 0.5 % (0-2); % Eosinophils 4.1 % (0-6); % Immature Granulocytes 0.6 % (0-0.5); % Lymphocytes 18.2 % (20.5-51.1); % Monocytes 11.9 % (1.7-9.3); % Neutrophils 64.7 % (42.2-75.2); Absolute Eosinophils 0.3 10^3/uL (0-0.7); Absolute Lymphocytes 1.2 10^3/uL (1.2-3.4); Absolute Monocytes 0.8 10^3/uL (0.1-0.6); Absolute Neutrophils 4.1 10^3/uL (1.4-6.5); Hematocrit 31.4 % (37.0-47.0); Hemoglobin 10.4 g/dL (12.0-16.0); Mean Corp Hgb Conc. 33.1 g/dL (33.0-37.0); Mean Corpuscular Hgb 30.5 pg (27.0-31.0); Mean Corpuscular Volume 92.1 fL (81.0-99.0); Mean Platelet Volume 10.3 fL (7.4-10.4); Nucleated Red Blood Cells % 0 %; Platelet Count 189 10^3/uL (130-400); Red Blood Cell Count 3.41 10^6/uL (4.20-5.40); Red Cell Dist. Width 14.2 % (11.5-14.5); White Blood Cell Count 6.4 10^3/uL (4.8-10.8)
[2023-09-14 07:32] VITALS: BP 160/67
[2023-09-14 07:36] LABS: ALT (SGPT) 232 U/L (0-35); Albumin 3.2 g/dl (3.5-5.0); Alkaline Phosphatase 124 U/L (38-126); Blood Urea Nitrogen 13 mg/dl (7-17); Calcium 8.5 mg/dl (8.4-10.2); Carbon Dioxide 18 mmol/L (22-30); Chloride 113 mmol/L (98-107); Estimated Creatinine Clearance 40 ml/min; Glucose 100 mg/dl (70-99); Lipase 1865 U/L (23-300); Potassium 4.2 mmol/L (3.5-5.1); Sodium 140 mmol/L (135-145); Total Bilirubin 0.8 mg/dl (0.2-1.3); Total Protein 6.2 g/dl (6.3-8.2)
[2023-09-14] MEDS: PROTONIX IV 40 MG IV (07:38)
[2023-09-14] MEDS: NSS (PRESERVATIVE FREE) 10 ML IV (07:38)
[2023-09-14 07:47] LABS: AST (SGOT) 144 U/L (14-36)
[2023-09-14 07:48] LABS: Glucose - Point of Care 116 mg/dl (70-99)
[2023-09-14 09:06] LABS: Hepatitis B Surface Antigen Negative (Negative)
[2023-09-14 09:23] LABS: Hepatitis B Surface Antibody Negative; Hepatitis C Antibody Negative (Negative)
[2023-09-14 11:45] LABS: Glucose - Point of Care 129 mg/dl (70-99)
[2023-09-14 12:29] VITALS: BP 168/75; PULSE 57; O2SAT 99
[2023-09-14 12:31] LABS: Hepatitis A Antibody, Total Negative (Negative)
--- NOTE | 2023-09-14 13:44 | W.PN.HOSP.TC ---
Today's Communication/Plan
-
cap IVF
Full liquids; LFD at dinner if doing ok
prn Hydralazine
Assessment / Plan
Assessment / Plan
Assessment:
N/V/D
Acute Pancreatitis
- MRI/MRCP: Status post cholecystectomy with no evidence for biliary ductal dilation. There is no evidence for bile duct calculus. Mild edema with in and adjacent to the neck and head of the pancreas, compatible with pancreatitis. There is no
evidence for macroscopic necrosis. There is no evidence of a focal collection to suggest abscess or developing pseudocyst.
- TG level 199
- Lipase downtrending; cap IVF
- ADAT to full liquids
- GI following
Abnormal LFTs
- trend LFTs which are improving
- hepatitis panel so far negative
- holding statin
History hypertriglyceridemia
- hold statin/fibrates
- TG level 199
CKD III b
IDDM
- resume Toujeo and NovoLog, at reduced doses while fulls
- continue SSI
- A1c: 8.5%
- off Mounjaro x 4 weeks
hx of Nephrolithiasis
DVT ppx: Lovenox
Code: Full
Anticipated Discharge: Within 24 hours
Subjective/Interval History
-
Date of Service: September 14, 2023
tolerating clears, no new complaints
Objective Data
-
Labs:
Laboratory Results
09/14/23
06:09
WBC 6.4
Hgb 10.4 L
Hct 31.4 L
Plt Count 189
Sodium 140
Potassium 4.2
Chloride 113 H
Carbon Dioxide 18 L
BUN 13
Creatinine 1.1 H
Glucose 100 H
Calcium 8.5
Total Bilirubin 0.8
AST 144 H
ALT 232 H
Alkaline Phosphatase 124
Vital Signs:
Vital Signs
Temp Pulse Resp BP Pulse Ox
97.6 F 55 16 160/67 97
09/14/23 07:32 09/14/23 07:32 09/14/23 07:32 09/14/23 07:32 09/14/23 09:08
I&O
09/13/23 09/14/23 09/15/23
06:59 06:59 06:59
Intake Total 2400 / 2400 420 / 420
Balance 2400 / 2400 420 / 420
Physical Exam
-
General: No Apparent Distress
HEENT: Normocephalic and Atraumatic
Respiratory: Negative Wheezes
Cardiac: Regular Rhythm and S1/S2
GI: Soft
Genito-urinary: No Costovertebral Tender
Musculoskeletal: No Edema
Neuro: AO x 3
Psych: Calm
Data Reviewed
-
Total Time Spent with Patient (in minutes): 41
Labs: Labs Reviewed by me
[2023-09-14] MEDS: APRESOLINE 5 MG IV (15:02)
--- NOTE | 2023-09-14 15:24 | CM ---
Reviewed chart, met with patient to obtain information for assessment. Patient stated that she lives with her spouse in a two story home with one step to enter. She described herself as independent with her ADLs, personal care, dressing and bathing
and at times if she is having difficulty, her spouse is able to assist her. Patient uses a cane outdoors to assist with her ambulation. Her spouse does the cleaning, laundry and lead data entry operator and she is able to cook. She drives and can get
herself to her appointments and do all of her own shopping.
Patient had VN services through a few years ago.
She has been to [facility] in the past.
Patient has a prescription plan and uses [facility] on for all of her medications.
Her PCP is, Dr. Tolu Gomez.
Patient stated that she would like to return home when she is stable and does not feel she will have any needs for discharge.
Plan: Case management will continue to follow and assist with discharge planning. Home when stable.
[2023-09-14 15:55] VITALS: BP 165/70
[2023-09-14 16:34] LABS: Glucose - Point of Care 113 mg/dl (70-99)
--- NOTE | 2023-09-14 17:04 | W.PN.GI.CBS2 ---
Addendum entered and electronically signed by Ashlie Hassan MD 09/14/23 18:04:
I saw and examined the patient.
The NEURO PSYCH SALES SPECIALIST or PA's note was reviewed and I agree with the note.
Comment: No abdominal pain at this time. No diarrhea, passing flatus. Tolerating clear liquid diet.
-Mild acute uncomplicated pancreatitis of unclear etiology-she is status post cholecystectomy
Triglyceride level normal. No recent new medications. Mounjaro stopped 1 month ago, no strong association with pancreatitis
Elevated transaminases, hepatitis serologies negative
Could be related to underlying urosepsis
Okay to advance to low-fat diet
Completely abstain from alcohol-patient does not drink much alcohol at all
Follow-up as outpatient in the office-message sent
Original Note:
Today's Communication / Plan
-
etiology Mounjaro vs other no stones on MRI
MRI as noted
tolerating clears advance to ADA low fat diet- if tolerating and feeling well consider discharge in AM
LFT's and lipase tending down
message sent to GI office for follow up
cont off Mounjaro
will sign off call with questions
Assessment / Plan
-
78-year-old female with past medical history of diabetes, on insulin and recently on Mounjaro started 9 months ago for hemoglobin A1c that was uncontrolled, now improved however unable to get meds for the past 4 weeks, CKD, osteoarthritis, uterine
cancer, hyperlipidemia with elevated triglycerides, history of pancreatitis in 2000 felt to be due secondary to hypertriglyceridemia with prolonged hospitalization requiring TPN. Who presents to the emergency room with acute onset of abdominal
pain. Asked to evaluate for pancreatitis. The patient states that she gets her amylase and lipase checked frequently for her history of pancreatitis in the past with her PCP. She states that a couple weeks ago her amylase and lipase started
increasing. She has been on Mounjaro for approximately 9 months. Approximately 4 weeks ago because of supply chain issues she has been not able to take this. She has had no other changes in medications recently. On 08/22/2023 she had amylase of
147 with a lipase of 235 and triglycerides of 378 with normal LFTs. Repeated on 08/28/2023 with an amylase of 102 and a lipase of 144. Of note the lipase was only 1 that was slightly out of range. Normal LFTs at that time. The patient states that
she did not had have any discomfort till day prior to admission where she had acute onset of abdominal discomfort which she states is periumbilical in nature.She presented with a leukocytosis of 13.0 with elevatated LFT's and lipase.
MR Abdomen W/o & W Contrast Status post cholecystectomy with no evidence for biliary ductal dilation. There is no evidence for bile duct calculus.
Mild edema with in and adjacent to the neck and head of the pancreas, compatible with pancreatitis. There is no evidence for macroscopic necrosis. There is no evidence of a focal collection to suggest abscess or developing pseudocyst.
Mild fatty infiltration of the liver. Hypoplastic medial segment of the left lobe of the liver, stable.
Large cyst arising from the lower pole the right kidney, stable.
Homogeneous increased T1 and T2-weighted signal involving the marrow of L5 and the visualized pelvic bones, suggestive of previous radiation therapy.
Impression:
Pancreatitis with hx prior pancreatitis and ERCP years ago
Elevated LFTs
DM
History hypertriglyceridemia
Hx Mounjaro use (off x 4 weeks)
Plan:
etiology Mounjaro vs other no stones on MRI
MRI as noted
tolerating clears advance to ADA low fat diet- if tolerating and feeling well consider discharge in AM
LFT's and lipase tending down
message sent to GI office for follow up
cont off Mounjaro
will sign off call with questions
Subjective
Subjective
Date of Service: September 14, 2023
feeling better no pain, + flatus no stools tolerating clears
Objective
Data Reviewed
Laboratory Data:
Laboratory Results
09/14/23 06:09
09/14/23 06:09
Laboratory Results
Total Bilirubin 0.8 mg/dl (0.2-1.3) 09/14/23 06:09
AST 144 U/L (14-36) H 09/14/23 06:09
ALT 232 U/L (0-35) H 09/14/23 06:09
Alkaline Phosphatase 124 U/L (38-126) 09/14/23 06:09
Lipase 1865 U/L (23-300) H* 09/14/23 06:09
Vital Signs and I&O:
Vital Signs
Temp Pulse Resp BP Pulse Ox
98 F 56 16 165/70 98
09/14/23 15:55 09/14/23 15:55 09/14/23 15:55 09/14/23 15:55 09/14/23 15:55
I&O
09/13/23 09/14/23 09/15/23
06:59 06:59 06:59
Intake Total 2400 / 2400 420 / 420
Balance 2400 / 2400 420 / 420
Physical Exam
Physical Exam
HEENT: Anicteric and Moist mucous membranes
Cardiology: Normal Sinus Rhythm
Pulmonary: Clear
GI: Soft, Non Distended and Non Tender
Extremities: No Edema
Neuro: Non Focal
[2023-09-14] MEDS: LOVENOX 40 MG SC (18:01)
[2023-09-14] MEDS: NOVOLOG FLEXPEN 7 UNITS SC (18:02)
[2023-09-14 21:23] LABS: Glucose - Point of Care 91 mg/dl (70-99)
[2023-09-14] MEDS: LANTUS 0.25 UNITS SC (22:25)
[2023-09-14 23:00] VITALS: BP 156/75
[2023-09-15 07:44] VITALS: BP 155/69
[2023-09-15 07:53] LABS: Glucose - Point of Care 105 mg/dl (70-99)
[2023-09-15 08:07] LABS: ALT (SGPT) 194 U/L (0-35); AST (SGOT) 109 U/L (14-36); Albumin 3.9 g/dl (3.5-5.0); Alkaline Phosphatase 140 U/L (38-126); Blood Urea Nitrogen 16 mg/dl (7-17); Calcium 9.8 mg/dl (8.4-10.2); Carbon Dioxide 19 mmol/L (22-30); Chloride 110 mmol/L (98-107); Estimated Creatinine Clearance 40 ml/min; Glucose 95 mg/dl (70-99); Potassium 4.1 mmol/L (3.5-5.1); Sodium 139 mmol/L (135-145); Total Bilirubin 0.9 mg/dl (0.2-1.3); Total Protein 7.1 g/dl (6.3-8.2)
[2023-09-15] MEDS: NOVOLOG FLEXPEN 7 UNITS SC ×2 (09:42→12:17)
[2023-09-15] MEDS: PROTONIX 40 MG PO (09:42)
[2023-09-15 11:40] LABS: Glucose - Point of Care 131 mg/dl (70-99)
--- NOTE | 2023-09-15 12:17 | W.PN.HOSP.TC ---
Today's Communication/Plan
-
dc home
Assessment / Plan
Assessment / Plan
Assessment:
N/V/D
Acute Pancreatitis
- MRI/MRCP: Status post cholecystectomy with no evidence for biliary ductal dilation. There is no evidence for bile duct calculus. Mild edema with in and adjacent to the neck and head of the pancreas, compatible with pancreatitis. There is no
evidence for macroscopic necrosis. There is no evidence of a focal collection to suggest abscess or developing pseudocyst.
- TG level 199
- Lipase downtrending; cap IVF
- tolerating reg diet
- GI follow uo OP
Abnormal LFTs
- trend LFTs which are improving
- hepatitis panel so far negative
- holding statin until next week
History hypertriglyceridemia
- hold statin/fibrates until next week
- TG level 199
CKD III b
IDDM
- resume Toujeo and NovoLog, at reduced doses while fulls
- continue SSI
- A1c: 8.5%
- off Mounjaro x 4 weeks
hx of Nephrolithiasis
DVT ppx: Lovenox
Code: Full
More than 30 minutes spent in discharge including
Final examination of the patient
Summarizing hospital stay
Instructions for continuing care to all relevant caregivers
Preparation of discharge records, prescriptions, and referral forms
Total time spent (in minutes): 42
Anticipated Discharge: Today
Subjective/Interval History
-
Date of Service: September 15, 2023
tolerating diet, no complaints
Objective Data
-
Labs:
Laboratory Results
09/15/23
06:17
Sodium 139
Potassium 4.1
Chloride 110 H
Carbon Dioxide 19 L
BUN 16
Creatinine 1.1 H
Glucose 95
Calcium 9.8
Total Bilirubin 0.9
AST 109 H
ALT 194 H
Alkaline Phosphatase 140 H
Vital Signs:
Vital Signs
Temp Pulse Resp BP Pulse Ox
97.9 F 64 16 155/69 97
09/15/23 07:44 09/15/23 07:44 09/15/23 07:44 09/15/23 07:44 09/15/23 07:44
I&O
09/14/23 09/15/23 09/16/23
06:59 06:59 06:59
Intake Total 420 / 420 1919
Balance 420 / 420 1919
Physical Exam
-
General: No Apparent Distress
HEENT: Normocephalic and Atraumatic
Respiratory: Negative Wheezes
Cardiac: Regular Rhythm and S1/S2
GI: Soft and Nontender
Genito-urinary: No Costovertebral Tender
Neuro: AO x 3
Hematologic / Lymphatic: No Lymphadenopathy
Psych: Calm
Data Reviewed
-
Total Time Spent with Patient (in minutes): 42
Labs: Labs Reviewed by me
--- NOTE | 2023-09-15 12:24 | W.DS.TRANS ---
DC Summary - Assistant Sales Director
-
Discharge Instructions:
Discharge Diagnosis/Procedures acute pancreatitis likely from Mounjaro effect
Diet Diabetic, Carb Controlled,Low Fat
Additional Diets low lactose
Activity As tolerated
Bathing Restrictions None
Instructions:
Stand-Alone Forms:
Changes to Home Medications: No
Discharge Medications:
DC Medications w/original date entered in [employer]
atorvastatin 80 mg tablet 80 mg PO DAILY High Cholesterol 09/11/23
estradiol 0.01% (0.1 mg/gram) vaginal cream 1 appful vaginal .3X WEEKLY Hormonal Agent 09/11/23
fenofibrate nanocrystallized 145 mg tablet 145 mg PO DAILY High Cholesterol 09/11/23
olopatadine 0.6 % nasal spray 2 spray intranasal BID Allergies 09/11/23
omega 7-mma-mpo-fish oil 1,000 mg (120 mg-180 mg) capsule (Fish Oil) 1 cap PO MEALS Supplement 09/11/23
potassium citrate 5 mEq (540 mg) tablet,extended release 15 meq PO BIDWMEAL Electrolyte Repletion 09/11/23
pantoprazole 40 mg tablet,delayed release 40 mg PO DAILY #30 tabs 09/14/23
insulin aspart U-100 100 unit/mL (3 mL) subcutaneous pen (Novolog FlexPen U-100 Insulin aspart) 10 unit (0.1 mL) SC AC Diabetes #0 mL 09/15/23
insulin glargine U-300 conc 300 unit/mL (1.5 mL) subcutaneous pen (Toujeo SoloStar U-300 Insulin) 25 unit (0.0833 mL) SC HS Diabetes #0 mL 09/15/23
Home Medication Changes
Pending Results: No
Total time spent discharging patient (in min): 42
[2023-09-15 15:46] VITALS: BP 145/69
== END 2023-09-15 16:45 | disposition home or self-care (01) | DRG 440 ==
LOC: 3 WEST ACU 22:10
PROVIDERS: Clinical Nurse Specialist Family Health; Nurse Practitioner; Student in an Organized Health Care Education/Training Program; ADMITTING PHYSICIAN Hospitalist; ATTENDING PHYSICIAN Internal Medicine; CONSULT PHYSICIAN Internal Medicine; EMERGENCY PHYSICIAN Emergency Medicine; FAMILY PHYSICIAN Family Medicine
DX: K85.90 Acute pancreatitis without necrosis or infection, unspecified (principal); E11.22 Type 2 diabetes mellitus with diabetic chronic kidney disease; N18.32 Chronic kidney disease, stage 3b; E66.09 Other obesity due to excess calories; Z68.32 Body mass index [BMI] 32.0-32.9, adult; R79.89 Other specified abnormal findings of blood chemistry; K86.1 Other chronic pancreatitis; E78.1 Pure hyperglyceridemia; N28.1 Cyst of kidney, acquired; N20.0 Calculus of kidney; E80.7 Disorder of bilirubin metabolism, unspecified; R74.01 Elevation of levels of liver transaminase levels; Z79.4 Long term (current) use of insulin; Z79.899 Other long term (current) drug therapy; Z87.442 Personal history of urinary calculi; Z86.19 Personal history of other infectious and parasitic diseases; Z90.49 Acquired absence of other specified parts of digestive tract; Z86.79 Personal history of other diseases of the circulatory system; Z85.42 Personal history of malignant neoplasm of other parts of uterus; Z90.710 Acquired absence of both cervix and uterus; Z88.0 Allergy status to penicillin
CPT/HCPCS: 74183; 76700; 80053; 82248; 82550; 82962; 83036; 83690; 84478; 85025; 85027; 86140; 86706; 86708; 86803; 87340; 93005; 97116; A9575

== ENCOUNTER → 2024-05-07 11:19 | Outpatient (REF) | payer OTHER, SELFPAY | LOC: HWRAD 11:19 | PROVIDERS: ATTENDING PHYSICIAN Urology; FAMILY PHYSICIAN Family Medicine | DX: N20.0 Calculus of kidney (principal) | CPT/HCPCS: 76775 ==

== ENCOUNTER → 2024-10-09 14:44 | Outpatient (REF) | payer OTHER, SELFPAY | LOC: DHSLP 14:44 | PROVIDERS: ATTENDING PHYSICIAN Physician Assistant Medical; FAMILY PHYSICIAN Family Medicine | DX: G47.30 Sleep apnea, unspecified (principal); R06.83 Snoring | CPT/HCPCS: 95800 ==

== ENCOUNTER → 2024-12-05 09:24 | Outpatient (REF) | payer OTHER, SELFPAY | LOC: RAD 09:24 | PROVIDERS: ATTENDING PHYSICIAN Urology; FAMILY PHYSICIAN Family Medicine | DX: N20.0 Calculus of kidney (principal) | CPT/HCPCS: 76775 ==